=== PATIENT | female | born 1965 | race Caucasian/White ===

== ENCOUNTER → 2019-08-10 10:26 | Outpatient (BNVA) | payer OTHER, SELFPAY | PROVIDERS: Family Provider Nurse Practitioner Family; Referring Provider Nurse Practitioner Family; Visit Provider Specialist | DX: M79.641 Pain in right hand (principal) | CPT/HCPCS: 73130 ==

== ENCOUNTER 2019-08-16 06:02 | Day surgery (SDC) | payer OTHER, SELFPAY ==
[2019-08-15 09:29] VITALS: BMI 24.4
[2019-08-16 06:14] LABS: OR HCG Qualitative Urine Negative (Negative)
[2019-08-16 06:15] VITALS: BP 145/97; PULSE 89; RESP 18; TEMP 37.7; O2SAT 99
--- NOTE | 2019-08-16 06:22 | ANES.PREANE2 ---
Pre-Anesthetic Assessment Pre-Anesthetic Assessment: Height/Weight: Height 1.6 m Weight 62.596 kg Temp Pulse Resp BP Pulse Ox 99.8 F H 89 18 145/97 99 08/16/19 06:15 08/16/19 06:15 08/16/19 06:15 08/16/19 06:15 08/16/19 06:15 Preop Diagnosis: Right long trigger finger Proposed Procedure: Operation Date: 08/16/19 07:00 Proposed Procedures p Right Middle Trigger Finger Release 44872 M65.331(Right) - Mallory Baez MD Familial anesthetic complications: Could feeld her colonoscopy Was Beta Jan taken within 24 hours: Yes Last intake: NPO > 8 hrs Social: Social History: No alcohol and No tobacco Exam: Pre-Anes Outpt Exam: alert, oriented x 3, clear to auscultation bilaterally and regular rate & rhythm Airway: Cervical ROM: WNL MP: 2 Additional comments: missing Pulmonary: Pulmonary: None reported CV/HEM: CV/HEM: HTN : : None reported Hepatic: Hepatic: None reported GI: GI: GERD Comments: occassional heartburn Metabolic: Metabolic: None reported Musc/skel: Musc/skel: None reported Neuropsych: Neuropsych: None reported Anesthetic Plan: ASA status: 2 Anesthesia: MAC Risk of > 500 ml blood loss (7ml/kg in children): No PFSH Anesthesia PFSH: Social History Smoking and tobacco status: never smoked Alcohol intake: never Data Anesthesia Other Labs: Laboratory Results - last 48 hr 08/16/19 06:11 Urine HCG, Qual Negative Cardiac Studies: No Data to Display
[2019-08-16] MEDS: sodium chloride 0.9% 1,000 ML 30 ML IV (06:40)
[2019-08-16] MEDS: CELEcoxib 200 mg Capsule 400 MG PO (06:40)
--- NOTE | 2019-08-16 06:50 | W.PM.OPSUD ---
Surgery/Procedure H&P Update DATE OF PROCEDURE: August 16, 2019 DATE H&P PERFORMED: 08/10/19 H&P UPDATE INFORMATION: I have reviewed H&P completed within last 30 days, No changes to prior documentation and H&P is in [facility] [place] EMR on date indicated PREOP DIAGNOSIS: Right long trigger finger PLANNED PROCEDURE: Operation Date: 08/16/19 07:00 Proposed Procedures p Right Middle Trigger Finger Release [id number] M65.331(Right) - Mallory Baez MD
[2019-08-16 07:50] VITALS: BP 120/85; PULSE 77; RESP 18; TEMP 36.9; O2SAT 96
--- NOTE | 2019-08-16 07:52 | PM.OP ---
Operative Report Date of procedure: August 16, 2019 Pre-op Diagnosis: Right long trigger finger Post-op diagnosis: same Procedure Done: Release right long trigger finger Specimens removed/disposition: None Surgeon: Mallory Baez Sewage Screen Operator: [facility] OR technicians Anesthesia: Other ([place] block) Estimated blood loss (mL): 3 Tourniquet time (min): 32 IV fluids (mL): 200 Urine output (mL): 0 Complications: None Findings: Severe triggering right long finger Condition: stable Disposition: same day Brief History: This 53-year-old woman presented with complaints of significant triggering of her right long finger. She wished to proceed with operative intervention after discussion of available treatments was undertaken. Risks and complications were discussed with her. Consents were signed. Procedure: Patient was brought to the operating theater. She was placed on the operating room table. A [place] block was administered without difficulty. Patient tolerated it well. 2 g of Ancef was administered prophylactically. A tourniquet was placed high on the arm and was elevated for the [place] block. This followed exsanguination of the arm per anesthesia. Tourniquet time was 32 minutes. Surgical pause was performed prior to commencement of the surgical procedure. At the time of the surgical pause we identified the site and side of surgery. We also identified the patient's identity and appropriate administration of IV antibiotics. Following the surgical pause, an incision was made along the distal palmar crease beneath the long finger. Dissection continued through the skin to the subcutaneous tissues using a scalpel. Blunt dissection was then utilized to spread soft tissues and allow access to the A1 terrence. The A1 terrence was identified. It was then incised longitudinally and sharply using a knife. This was accomplished without difficulty and atraumatically. Once the A1 terrence was released, flexor tendons were brought up out of the wound and evaluated. There were no gross masses on the tendons. Tendons were returned to normal position. We then irrigated the wound and subsequently closed it with 3-0 nylon with an interrupted mattress type suture. Following closure of the wound, the wound was injected with bupivacaine plain into the subcutaneous tissues as a local anesthetic. Sterile dressing was then placed consisting of Telfa, Tegaderm, fluffed fluffs, sterile soft roll, and an Miguel Ángel wrap. The patient was returned to recovery in satisfactory condition. She will be discharged home to follow-up with me in the office. There were no complications and no specimens.
[2019-08-16 08:09] VITALS: BP 140/87; PULSE 74; RESP 18; O2SAT 100
== END 2019-08-16 08:25 | disposition home or self-care (01) ==
PROVIDERS: Anesthesiology; Family Provider Nurse Practitioner Family; Visit Provider Specialist
PROC: (CPT 26055; principal; 2019-08-16 07:00)
DX: M65.331 Trigger finger, right middle finger (principal); I10 Essential (primary) hypertension
CPT/HCPCS: 26055; 12345; 81025; 84703; J0690; J2001; J2704; J3010; J3490; J7030

== ENCOUNTER → 2020-01-04 13:12 | Outpatient (BNVA) | payer OTHER, SELFPAY | PROVIDERS: Family Provider Nurse Practitioner Family; Visit Provider Obstetrics & Gynecology | DX: R30.9 Painful micturition, unspecified (principal) | CPT/HCPCS: 80053; 81000; 87086 ==

== ENCOUNTER 2020-04-04 15:21 | Outpatient (CLI) | payer OTHER, SELFPAY ==
--- NOTE | 2020-04-04 15:27 | MM_ITS ---
WS: [id number] BILATERAL SCREENING DIGITAL MAMMOGRAM WITH CAD HISTORY: SCREENING COMPARISON: 03/31/2019 and 02/22/2018 Bilateral CC and MLO views submitted. Computer aided detection analyzed. Breast composition: The breasts are heterogeneously dense, which may obscure small masses. No suspici ous masses, microcalcifications or architectural distortion. MM/[place] [id number] IMPRESSION: BI-RADS: 1-Negative FOLLOW UP: 1 Year Follow-up
== END 2020-04-04 15:22 | disposition home or self-care (01) ==
LOC: RADSHAW 15:25
PROVIDERS: PCP Nurse Practitioner Family; Visit Provider Obstetrics & Gynecology
DX: Z12.31 Encounter for screening mammogram for malignant neoplasm of breast (principal)
CPT/HCPCS: 77067

== ENCOUNTER → 2020-11-14 09:00 | Outpatient (BNVA) | payer OTHER, SELFPAY | PROVIDERS: PCP Nurse Practitioner Family; Visit Provider Obstetrics & Gynecology | DX: Z12.4 Encounter for screening for malignant neoplasm of cervix (principal) | CPT/HCPCS: 88175 ==

== ENCOUNTER 2021-06-17 09:25 | Outpatient (CLI) | payer OTHER, SELFPAY ==
--- NOTE | 2021-06-17 09:32 | MM_ITS ---
WS: [id number] SCREENING DIGITAL MAMMOGRAM WITH CAD HISTORY: SCREENING COMPARISON: 04/04/2020, 03/31/2019 and 03/15/2018 Bilateral CC and MLO views submitted. Computer aided detection analyzed. Breast composition: The breasts are heterogeneously dense, which may obscure small masses. Partially obscured nodule or superimposed fibroglandular density in the central RIGHT breast just posterior and above the nipple line. This asymmetry measures approximately 10 mm in short axis diameter and is pre dominantly obscured by soft tissue on the lateral projection. No additional abnormalities. MM/[place] [id number] IMPRESSION: BI-RADS: 0-Incomplete: Need additional imaging evaluation FOLLOW UP: Need Additional Imaging RIGHT breast: Spot compression views (CC and MLO). True ML. Ultrasound to follo w if abnormality persists.
== END 2021-06-17 09:26 | disposition home or self-care (01) ==
LOC: RADSHAW 09:30
PROVIDERS: PCP Nurse Practitioner Family; Visit Provider Obstetrics & Gynecology
DX: Z12.31 Encounter for screening mammogram for malignant neoplasm of breast (principal)
CPT/HCPCS: 77067

== ENCOUNTER 2021-06-19 09:47 | Outpatient (CLI) | payer OTHER, SELFPAY ==
--- NOTE | 2021-06-19 10:00 | US_ITS ---
WS: [id number] ADDITIONAL VIEWS RIGHT BREAST RIGHT breast ultrasound, limited. HISTORY: Inconclusive finding on screening mammogram. COMPARISON: 06/17/2021, 04/04/2020 and 03/31/2019 Compression views right CC and MLO projection. True ML also submitted. Partially visualized asymmetry posterior to the RIGHT nipple becomes less apparent on additional view s. Fibroglandular tissue is dense in this area. Ultrasound will be performed to the anterior breast t o be sure there is no underlying mass. There is no distortion. RIGHT breast ultrasound, limited. Ultrasound is directed along the 12 and 6 o'clock axis. No suspicious masses are identified. There is a normal fibroglandular pattern. Very dense fibroglandular tissue. US/US breast RT limited* [id number] IMPRESSION: BI-RADS: 2-Benign FOLLOW-UP: 1 Year Follow-up
== END 2021-06-19 09:48 | disposition home or self-care (01) ==
LOC: RADSHAW 09:50
PROVIDERS: PCP Nurse Practitioner Family; Visit Provider Obstetrics & Gynecology
DX: R92.8 Other abnormal and inconclusive findings on diagnostic imaging of breast (principal)
CPT/HCPCS: 76642; 77065

== ENCOUNTER → 2021-07-18 10:43 | Outpatient (BNVA) | payer OTHER, SELFPAY | PROVIDERS: PCP Nurse Practitioner Family; Visit Provider Surgery | DX: Z11.52 Encounter for screening for COVID-19 (principal) | CPT/HCPCS: 87635 ==

== ENCOUNTER 2021-07-24 07:36 | Day surgery (SDC) | payer OTHER, SELFPAY ==
[2021-07-22 08:49] VITALS: BMI 24.7
--- NOTE | 2021-07-24 08:03 | P.ANESASSM_ITS ---
Pre-Anesthetic Assessment Height/Weight: Height 1.6 m Weight 63.503 kg Preop Diagnosis: diagnostic Operation Date: 07/24/21 09:00 Proposed Procedures p [id number]/z80.0(Not Applicable) - Steffen Winters MD s Colonoscopy 74277/k21.9(Not Applicable) - Steffen Winters MD Familial anesthetic complications: None Was Beta Jan taken within 24 hours: N/A Was Clonidine taken within 24 hours: N/A Social No alcohol and No tobacco Exam alert, oriented x 3 and regular rate & rhythm Diminished breath sounds due to limited effort, bilateral Airway Submandibular: within normal limits Cervical ROM: within normal limits Mallampati: Class III Dentition: full Pulmonary None reported CV/HEM None reported None reported GI Gastroesophageal Reflux Disease (Symptomatic on empty stomach with reflux) Metabolic None reported Musc/skel None reported Neuropsych None reported Anesthetic Plan ASA status: 2 Anesthesia: Anesthesia Evaluation and General Other: I discussed with the patient risks, goals, and benefits of MAC and general anesthesia. We discussed spectrum of MAC anesthesia including conversion to general as well as possibility of recall of intraoperative stimuli including discomfort/pain. Patient agrees to proceed with MAC. Risk of > 500 ml blood loss (7ml/kg in children): No Medications/Allergies Home Medications Medication Instructions Recorded Confirmed Last Taken Type nebivolol 5 mg tablet (Bystolic) 5 mg PO DAILY 08/16/19 07/22/21 08/16/19 History pantoprazole 40 mg tablet,delayed 40 mg PO DAILY #60 tab 07/22/21 07/22/21 Unknown Rx release Allergies Allergy/AdvReac Type Severity Reaction Status Date / Time Sulfa (Sulfonamide Allergy Intermediate rash Verified 07/22/21 08:48 Antibiotics) [facility] Anesthesia Medical History Anxiety 2020-on medication managed by her primary care provider. GERD (gastroesophageal reflux disease) Patient on diet. Has never had an EGD. Hypertension Diagnosed in her 40s and has been on medication since that managed by her PMD. 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
[2021-07-24 08:08] VITALS: BP 156/95; PULSE 77; RESP 18; TEMP 36.7; O2SAT 98
[2021-07-24] MEDS: sodium chloride 0.9% 1,000 ML 30 ML IV (08:11)
--- NOTE | 2021-07-24 08:55 | W.PM.OPSFHP ---
Same Day Surgery H&P Indication for Procedure/HPI DATE OF PROCEDURE: July 24, 2021 CHIEF COMPLAINT/INDICATIONFOR SURGICAL PROCEDURE: screening PREOP DIAGNOSIS: diagnostic PLANNED PROCEDURE: Operation Date: 07/24/21 09:00 Proposed Procedures p [id number]/z80.0(Not Applicable) - Steffen Winters MD s Colonoscopy 26955/k21.9(Not Applicable) - Steffen Winters MD Medications/Allergies* Home Medications Medication Instructions Recorded Confirmed Type nebivolol 5 mg tablet (Bystolic) 5 mg PO DAILY 08/16/19 07/22/21 History Allergies/Adverse Reactions Allergy/AdvReac Type Severity Reaction Status Date / Time Sulfa (Sulfonamide Allergy Intermediate rash Verified 07/22/21 08:48 Antibiotics) Current Medications: Generic Name Dose Route Start Last Admin Trade Name Freq PRN Reason Stop Dose Admin Sodium Chloride 1,000 mls @ 30 mls/hr 07/24/21 07:45 07/24/21 08:11 Sodium Chloride 0.9% IV 07/25/21 07:44 30 mls/hr .Q24H ZINA Administration Pertinent History/Comorbid Conditions* Medical History (Updated 06/28/21 @ 08:06 by Steffen Winters MD) Anxiety 2020-on medication managed by her primary care provider. GERD (gastroesophageal reflux disease) Patient on diet. Has never had an EGD. Hypertension Diagnosed in her 40s and has been on medication since that managed by her PMD. 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 Surgical History (Updated 11/15/20 @ 14:08 by Rios Krishnan MD) History of colonoscopy 2015 S/P trigger finger release 2019--right-sided Family History (Updated 11/14/20 @ 08:38 by Kathy Ross RN) Colon cancer Mother diagnosed at age 75 Hypertension Mother Denies family history of Ovarian cancer Diabetes Heart disease Hyperlipidemia Breast cancer Uterine cancer Thyroid condition Stroke Social History Smoking and tobacco status: never smoked Alcohol intake: never Pertinent Exam Findings alert, oriented x 3 and regular rate & rhythm Recommendations Surgery/Procedure today Coding Level of Care Code Acute 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
[2021-07-24 09:23] VITALS: BP 113/71; PULSE 71; RESP 16; TEMP 36.4; O2SAT 97
[2021-07-24 09:40] VITALS: BP 136/96; PULSE 78; RESP 18; O2SAT 98
--- NOTE | 2021-07-24 16:12 | ANE.PACU2 ---
Inpatient post-anesthesia follow up: Airway intact: Yes Vital signs: Temperature 97.6 F Pulse Rate 78 Respiratory Rate 18 Blood Pressure 136/96 Pulse Oximetry 98 Oxygen Delivery Me thod Room Air Oxygen Flow Rate Fraction of Inspir ed Oxygen Hydration adequate: Yes Nausea and vomiting: No Pain level: 1 Mental status: Baseline
== END 2021-07-24 09:55 | disposition home or self-care (01) ==
PROVIDERS: PCP Nurse Practitioner Family; Visit Provider Surgery
PROC: 0DJ08ZZ Inspection of Upper Intestinal Tract, Via Natural or Artificial Opening Endoscopic (ICD-10-PCS; CPT 43235; principal; 2021-07-24 09:00)
PROC: 0DJD8ZZ Inspection of Lower Intestinal Tract, Via Natural or Artificial Opening Endoscopic (ICD-10-PCS; CPT 45378; 2021-07-24 09:00)
DX: Z12.11 Encounter for screening for malignant neoplasm of colon (principal); Z80.0 Family history of malignant neoplasm of digestive organs; K21.9 Gastro-esophageal reflux disease without esophagitis; K57.30 Diverticulosis of large intestine without perforation or abscess without bleeding; K29.70 Gastritis, unspecified, without bleeding; I10 Essential (primary) hypertension; Z82.49 Family history of ischemic heart disease and other diseases of the circulatory system; Z83.3 Family history of diabetes mellitus
CPT/HCPCS: 43239; 45378; 88305; J2704; J7030

== ENCOUNTER 2022-06-27 08:29 | Outpatient (CLI) | payer OTHER, SELFPAY ==
--- NOTE | 2022-06-27 08:39 | MM_ITS ---
WS: [id number] BILATERAL SCREENING DIGITAL TOMOSYNTHESIS MAMMOGRAM WITH CAD HISTORY: SCREENING COMPARISON: 06/19/2021, 06/17/2021 and 04/04/2020 Bilateral CC and MLO views with tomosynthesis and synthetic mammography submitted. Computer aided det ection analyzed. Breast composition: The breasts are heterogeneously dense, which may obscure small masses. No suspici ous masses, microcalcifications or architectural distortion. Asymmetry upper outer quadrant LEFT alec st is stable. MM/[place] [id number] IMPRESSION: BI-RADS: 2-Benign FOLLOW UP: 1 Year Follow-up
== END 2022-06-27 08:30 | disposition home or self-care (01) ==
LOC: RAD 08:32
PROVIDERS: PCP Nurse Practitioner Family; Visit Provider Nurse Practitioner Family
DX: Z12.31 Encounter for screening mammogram for malignant neoplasm of breast (principal)
CPT/HCPCS: 77063; 77067

== ENCOUNTER 2023-07-28 08:55 | Outpatient (CLI) | payer OTHER, SELFPAY ==
--- NOTE | 2023-07-28 09:00 | MM_ITS ---
WS: [id number] BILATERAL 3D TOMOSYNTHESIS DIGITAL SCREENING MAMMOGRAPHY WITH CAD CLINICAL INFORMATION: SCREENING HISTORY: Screening mammogram. No current complaints. COMPARISON: 2022 TECHNIQUE: Bilateral CC and MLO views. FINDINGS: The breasts are composed of heterogeneous fibroglandular density tissue, which can limit the detectio n of small underlying mass lesions. No suspicious mass, asymmetry, calcifications, or architectural d istortion. No evidence of malignancy. Incidental punctate calcifications. IMPRESSION: MM/[place] [id number] BI-RADS: 2-Benign FOLLOW UP: 1 Year Follow-up Recommend return to annual screening mammography.
== END 2023-07-28 08:56 | disposition home or self-care (01) ==
LOC: MOBLMAM 09:01
PROVIDERS: PCP Nurse Practitioner Women's Health; Visit Provider Nurse Practitioner Women's Health
DX: Z12.31 Encounter for screening mammogram for malignant neoplasm of breast (principal); R92.323 Mammographic fibroglandular density, bilateral breasts
CPT/HCPCS: 77063; 77067

== ENCOUNTER 2024-08-24 09:19 | Outpatient (CLI) | payer OTHER, SELFPAY ==
--- NOTE | 2024-08-24 09:20 | MM_ITS ---
WS: [id number] BILATERAL SCREENING DIGITAL TOMOSYNTHESIS MAMMOGRAM WITH CAD HISTORY: SCREENING COMPARISON: 07/28/2023, 06/27/2022 Bilateral CC and MLO views with tomosynthesis and synthetic mammography submitted. Computer aided detection analyzed. Breast composition: The breasts are heterogeneously dense, which may obscure small masses. No suspicious masses, microcalcifications or architectural distortion. There has been overall increase in fibroglandular density and breast parenchyma since the prior study. This is likely due to a change in hormone status. Benign calcifications RIGHT breast. MM/MM scr BI tomosynthesis [id number] IMPRESSION: BI-RADS: 2 - Benign FOLLOW UP: 1 Year Follow-up
== END 2024-08-24 09:20 | disposition home or self-care (01) ==
LOC: MOBLMAM 09:20
PROVIDERS: PCP Nurse Practitioner Women's Health; Visit Provider Nurse Practitioner Women's Health
DX: Z12.31 Encounter for screening mammogram for malignant neoplasm of breast (principal); R92.333 Mammographic heterogeneous density, bilateral breasts; R92.323 Mammographic fibroglandular density, bilateral breasts; R92.1 Mammographic calcification found on diagnostic imaging of breast
CPT/HCPCS: 77063; 77067